=== PATIENT | female | born 1985 | race African-American/Black ===

== ENCOUNTER 2020-07-01 22:56 | Emergency (ER) | payer OTHER ==
[2020-07-01 23:06] VITALS: BP 127/82; PULSE 73; TEMP 98; BMI 24.7
[2020-07-02 01:23] LABS: BASO % 0.6 % (0-2.0); EOS % 2.5 % (0-4.5); HEMATOCRIT 34.7 % (32.4-45.2); HEMOGLOBIN 11.4 GM/dL (10.7-15.3); LYMPH % 44.6 % (8-40); MCH 31.8 pg (25.7-33.7); MCHC 32.7 g/dl (32.0-36.0); MEAN PLT VOLUME 9.2 fl (7.5-11.1); MONO % 9.5 % (3.8-10.2); NEUT % 42.8 % (42.8-82.8); PLATELET COUNT 277 K/MM3 (134-434); RBC 3.58 M/mm3 (3.60-5.2)
[2020-07-02 01:46] LABS: POTASSIUM 3.6 mmol/L (3.5-5.1)
[2020-07-02 01:48] LABS: CALCIUM 9.5 mg/dL (8.5-10.1)
[2020-07-02 01:49] LABS: BLOOD UREA NITROGEN 14.7 mg/dL (7-18)
[2020-07-02 01:52] LABS: CREATININE 0.9 mg/dL (0.55-1.3)
[2020-07-02 01:53] LABS: BILIRUBIN,TOTAL 0.3 mg/dL (0.2-1); TOT PROT 8.4 g/dl (6.4-8.2)
== END 2020-07-02 02:21 | disposition home or self-care (01) ==
LOC: FER 22:56
DX: O03.9 Complete or unspecified spontaneous abortion without complication (principal)
CPT/HCPCS: 36415; 76817-TC; 80053; 84702; 85025; 86850; 86900; 86901; 99284-25

== ENCOUNTER 2023-11-18 17:28 | Emergency (ER) | payer OTHER ==
[2023-11-18 17:39] VITALS: BP 140/94; PULSE 77; RESP 16; TEMP 98.8; BMI 26.5
[2023-11-18] MEDS ORDERED: ACETAMINOPHEN 325 MG TABLET (FP) ONE (18:08)
[2023-11-18] MEDS ORDERED: diazePAM 2 MG TABLET ONE (18:08)
[2023-11-18] MEDS ORDERED: KETOROLAC TROMETHAMINE 30 MG/1 ML VIAL ONE (18:08)
[2023-11-18] MEDS: ACETAMINOPHEN 325 MG TABLET (FP) PO ONE (18:10)
[2023-11-18] MEDS: diazePAM 2 MG TABLET PO ONE (18:13)
[2023-11-18] MEDS: KETOROLAC TROMETHAMINE 30 MG/1 ML VIAL IM ONE (18:15)
== END 2023-11-18 18:41 | disposition home or self-care (01) ==
LOC: FER 17:28
DX: M54.50 Low back pain, unspecified (principal)
CPT/HCPCS: 99283-25